=== PATIENT | female | born 2000 | race Caucasian/White ===

== ENCOUNTER 2025-03-06 08:00 | Outpatient (RCR) | payer MEDICAID, SELFPAY ==
--- NOTE | 2025-02-03 08:16 | XR_ITS ---
Examination: Biophysical profile, ultrasound Date and time of exam: February 03, 2025 0823 hrs. Indications: Diagnosis small for gestational age Technique: Multiple transabdominal sonographic images of the pelvis abdomen obtained. Attention is directed to the breathing movement, gross body movement, amniotic fluid volume and tone. Findings: Amniotic fluid index 17.4 cm Total biophysical profile is 8 of 8. breathing movement is 2. Gross body movement is 2. tone is 2. Qualitative amniotic fluid volume is 2 Impression: Biophysical profile is 8 of 8.
[2025-02-03 08:53] VITALS: BP 109/62; PULSE 76; RESP 18; TEMP 36.8
[2025-02-06 08:03] VITALS: BP 121/64; PULSE 85; RESP 16; TEMP 36.7
[2025-02-10 08:21] VITALS: BP 117/63; PULSE 74; RESP 16; TEMP 36.8
[2025-02-13 08:18] VITALS: BP 119/63; PULSE 85; RESP 16; TEMP 36.7
[2025-02-17 08:16] VITALS: BP 120/71; PULSE 85; RESP 16; TEMP 36.8
[2025-02-20 08:16] VITALS: BP 123/75; PULSE 85; RESP 16; TEMP 36.7
[2025-02-24 08:16] VITALS: BP 123/67; PULSE 71; RESP 16
[2025-03-06 08:48] VITALS: BP 122/76; PULSE 76; RESP 16
== END 2025-03-06 23:59 | disposition home or self-care (01) ==
LOC: S4S1 08:00
PROVIDERS: Referring Provider Student in an Organized Health Care Education/Training Program; Visit Provider Student in an Organized Health Care Education/Training Program
DX: Z34.83 Encounter for supervision of other normal pregnancy, third trimester (principal); Z3A.33 33 weeks gestation of pregnancy
CPT/HCPCS: 59025; 76819

== ENCOUNTER 2025-04-16 05:21 | Inpatient (IN) | payer MEDICAID, SELFPAY ==
--- NOTE | 2025-04-15 15:16 | PD.LDHP ---
Documentation for date of: 04/15/25 OB Labor/Induct. HPI History of Present Illness : 2 Term pregnancies: 0 pregnancies: 0 Living children: 0 History of Abortions: Spontaneous and Elective: 0 History of sections: Yes History of : No History of present illness: 24 y/o @39w admitted for Repeat Low transcverse Csection. Tatiana is a transfer of care to [place] late in third trimester . Pt has previous x1. Patient has her uncomplicated otherwise, had an isolated high BP , repeat was normal. GTT wnl. No other cmplications History of Present Dating criteria: LMP confirmed by 1st trimester US Abnormal ultrasound findings: anatomy wnl, ant placenta , no previa low PAS suspicion Narrative: GTT wnl Labs Narrative: Hb 10.2 Past Medical History Surgical History SURGICAL: Positive Section Meds Home Medications and Allergies Home Medications ?Medication ?Instructions ?Recorded ?Confirmed ?Type ferrous sulfate 325 mg (65 mg 325 mg PO .qod 04/16/25 04/16/25 History iron) tablet vits 75-iron 28 mg-folic 1 pkg PO .q day 04/16/25 04/16/25 History acid 800 mcg-omega-3 oral combo pack (One A Day Women's DHA) Allergies Allergy/AdvReac Type Severity Reaction Status Date / Time No Known Allergies Allergy Verified 04/16/25 07:28 OB Exam Constitutional Constitutional: no acute distress Routine HEENT Exam Head: Present normocephalic and atraumatic Eye: Present EOMI and PERRL ENT: Present mucous membranes moist Routine Neck Exam Neck: Present supple and trachea midline Routine Cardiovascular Exam Cardiovascular: Present RRR Routine Abdominal Exam Abdominal: Present soft and normoactive bowel sounds Detailed Labor and Delivery Exam Dilation (cm): closed Comments: cat 1FHT Routine Extremities Exam Extremities: Present full ROM Routine Skin Exam Skin: Present intact, dry and warm Routine Neurological Exam Neurological: Present alert, oriented X3 and CN II-XII intact Routine Psychiatric Exam Psychiatric: Present normal affect and normal thought process OB Results Labs 04/16/25 06:00 Impressions Impression: 24 Y/O @39W0D, admitted for RLTCS Prev Csection x1 anatomy wnl Hb 9.6 > 2 units on hold OB Assessment & Plan Additional Plan Additional Plan Comment: antibiotics per protocol DVT prophylaxis
[2025-04-16] VITALS (29 sets, daily range): BP systolic 103–155; BP diastolic 58–91; PULSE 60–116; RESP 14–20; TEMP 36.3–36.9; O2SAT 98–100; BMI 33.5
[2025-04-16] MEDS: RINGERS LACTATED 1000 ML 1,000 ML 999 ML IV (06:09)
[2025-04-16 06:33] LABS: Basophils # (Auto) 0.1 Thou/mm3 (0.0-0.2); Basophils % (Auto) 1 % (0-2.5); Eosinophils # (Auto) 0.2 Thou/mm3 (0.0-0.5); Eosinophils % (Auto) 2 % (0-10); Hematocrit 28.2 % (36.0-46.0); Hemoglobin 9.6 g/dL (12.0-16.0); Immature Granulocytes % (Auto) 2 % (0-0); Lymphocytes # (Auto) 2.1 Thou/mm3 (1.0-4.8); Lymphocytes % (Auto) 20 % (10-50); Mean Corpuscular Hemoglobin 27.9 pg (25.0-35.0); Mean Corpuscular Volume 82 fL (80-100); Monocytes # (Auto) 0.6 Thou/mm3 (0.0-0.8); Monocytes % (Auto) 6 % (0-12); Neutrophils # (Auto) 7.1 Thou/mm3 (1.8-7.7); Neutrophils % (Auto) 70 % (37-80); Nucleated Red Blood Cell % 0 /100 WBC (0); Platelet Count 241 Thou/mm3 (140-440); Red Blood Count 3.44 Miln/mm3 (4.00-5.20); White Blood Count 10.2 Thou/mm3 (3.6-11.0)
[2025-04-16 07:06] LABS: Syphilis Nonreactive (Nonreactive)
[2025-04-16] MEDS: CITRIC ACID/SODIUM CITR 15 ML UDC (BICITRA) 30 ML PO (07:10)
[2025-04-16] MEDS: FAMOTIDINE INJ 10 MG/ML VIAL 2 ML 20 MG IV (07:10)
[2025-04-16] MEDS: ceFAZolin/D5W 2 GM IV 2 GM/100 ML BAG IV (07:10)
[2025-04-16 07:47] LABS: Amphetamine/Metham Scrn,Ur OB Negative (Negative); Benzoylecgonine Screen, Ur OB Negative (Negative); Opiate Screen,Urine OB Negative (Negative); THC Screen,Urine OB Negative (Negative)
--- NOTE | 2025-04-16 08:38 | PD.GYNPROC ---
Operative Note - OUTDOOR ILLUMINATING ENGINEER Procedure Date of procedure: 04/16/25 Procedure Performed: Repeat low-transverse Indication: Previous C-sectionx1 Maternal anemia Pre-Op diagnosis: Same Post-Op diagnosis: Same Anesthesia type: Spinal Procedure description: Informed consent was obtained and the patient was taken to the operating room.? Identity was confirmed by double identifiers and she was placed on the operating table.The abdomen and perineum were prepped in the usual sterile fashion and a Prado catheter was placed to continuous drainage.? Sterile drapes were applied.??A Pfannenstiel skin incision was made with a scalpel and carried to the subcutaneous fat up to the rectus fascia.? The rectus fascia was incised on either side of the midline and the incisions were extended bilaterally.? The fascia was gently dissected off the ventral surface of the rectus muscle both superiorly and inferiorly. extensive adhesiolysis was done between musle , peritoneum. Carefully a peritioneal window created hysterotomy incision made and extended bluntly with finger. Rupture of membranes revealed clear fluid. The baby was found vertex presentation and was delivered via vertex. Nuchal cord x 2, seen the umbilical cord , was doubly clamped, divided and the was handed over to the waiting team. The placenta delivered by controlled cord traction . The interior of the uterus was now thorougly cleaned of all blood and debris and membranes.?The? hysterotomy was closed using 0 vicryl suture in double layers. Once the repair was completed the hysterotomy was inspected, was noted to be adequately hemostatic. Then the rectus fascia was repaired using Vicryl 0 in a running fashion.? The subcutaneous layer was now, approximated with 3-0 vicryl in double layers.? All bleeding points were cauterized using the Bovie.?The skin was closed using 4-0 Monocryl in a subcuticular fashion.? The skin was cleaned and a sterile dressing was applied. The patient was now undraped, the abdomen and back were thoroughly cleaned and she was now transferred to the recovery room in a stable Estimated blood loss (ml): 200 Surgical staff Operation Date: 04/16/25 07:45 Case Staff ORDNANCE ENGINEER: Roberto Blevins ORDNANCE ENGINEER: Tony Velasco RNlump machine operator: Elma Rodriguez Problem List Completed Was Problem List Reviewed/Reconciled?: Yes
[2025-04-16] MEDS: OXYTOCIN in NS 20 units 20 UNIT/1,000 ML BAG 125 UNIT IV ×2 (08:50→18:20)
--- NOTE | 2025-04-16 08:53 | PD.LDDELS ---
Data ([place]) Data Hx Section: Yes : 2 Term: 0 : 0 Livin Abortions: Spontaneous & Theraputic: 0 Delivery Data ([place]) Delivery Data Delivered by: Craig Cheung Anesthesia Type Anesthesia type: Spinal
[2025-04-16] MEDS: KETOROLAC INJ 30 MG/ML VIAL IVP ×2 (09:21→17:32)
[2025-04-16] MEDS: ACETAMINOPHEN IVPB 1,000 MG/100 ML VIAL 250 MG IV (10:27)
--- NOTE | 2025-04-16 10:43 | OBDSUM_ITS ---
Data ([place]) Data Hx Section: Yes : 2 Term: 0 : 0 Livin Abortions: Spontaneous & Theraputic: 0 Delivery Data ([place]) Labor Data Induction/Augmentation Agent: None ROM date: 04/16/25 ROM time: 08:08 Amniotic membrane rupture type: Artificial Amniotic fluid description: Clear Delivery Data delivery date: 04/16/25 delivery time: 08:08 Gestational age (weeks): 39 Gestational age (days): 0 Placenta delivery date: 04/16/25 Placenta delivery time: 08:09 Delivered by: Craig Cheung Delivery nurse: Monica Albright RN [place] nurse: Clarissa Gómez RN Software Test And Validation Engineer at delivery: No Support person(s) at delivery: CHANTELLE Other staff at delivery: Lex Engle CRNA Delivery Method Delivery method: Low Transverse Presentation: Vertex Anesthesia Type Anesthesia Type: Spinal Anesthesia type: Spinal Placenta Placenta delivery description: Manual Removal Cord blood sent to lab: Yes cord blood collection: Cord Blood Type Episiotomy Episiotomy description: None EBL Estimated blood loss (ml): 200 Umbilical Cord cord description: 3 Vessels [place] Data ([place]rev[place]) [place] Data order: 1 [place]'s gender: Male Identification band number: [id number] weight (gms): 2980 g Weight (pounds): 6 lbs and 9.1 ozs [place] length: 48.2 cm 1 minute: 8 5 minutes: 8 10 minutes: 9
[2025-04-16 15:14] LABS: Basophils # (Auto) 0.1 Thou/mm3 (0.0-0.2); Basophils % (Auto) 0 % (0-2.5); Eosinophils # (Auto) 0.1 Thou/mm3 (0.0-0.5); Eosinophils % (Auto) 1 % (0-10); Immature Granulocytes % (Auto) 1 % (0-0); Immature Granulocytes Auto 0.17 Thou/mm3 (0.00-0.00); Lymphocytes # (Auto) 2.3 Thou/mm3 (1.0-4.8); Lymphocytes % (Auto) 16 % (10-50); Mean Corpuscular Hemoglobin 28.1 pg (25.0-35.0); Mean Corpuscular Volume 83 fL (80-100); Monocytes # (Auto) 0.8 Thou/mm3 (0.0-0.8); Monocytes % (Auto) 5 % (0-12); Neutrophils # (Auto) 11.1 Thou/mm3 (1.8-7.7); Neutrophils % (Auto) 77 % (37-80); Nucleated Red Blood Cell % 0 /100 WBC (0); Platelet Count 189 Thou/mm3 (140-440); RDW Standard Deviation 39.8 fL (36.4-46.3); Red Blood Count 3.02 Miln/mm3 (4.00-5.20); White Blood Count 14.5 Thou/mm3 (3.6-11.0)
[2025-04-16 15:50] LABS: Hemoglobin 8.5 g/dL (12.0-16.0)
--- NOTE | 2025-04-16 19:04 | PC.NURSE ---
[id number] DANIEL TO REPORT POST DELIVERY CBC RESULTS NO ANSWER; VOICE MESSAGE WAS LEFT ASKING HER TO RETURN THE CALL
[2025-04-17] VITALS: BP 131/83; PULSE 90; RESP 18; TEMP 36.8; O2SAT 100
[2025-04-17 04:05] VITALS: BP 116/76; PULSE 83; RESP 16; TEMP 36.7; O2SAT 100
[2025-04-17] MEDS: KETOROLAC INJ 30 MG/ML VIAL IVP (04:10)
--- NOTE | 2025-04-17 07:49 | PD.LDPPPRG ---
Subjective Subjective Interval history: REPEAT SECTION POD #1. BREAST FEEDING. PAIN MANAGED BY TORADOL. NO URINARY COMPLAINTS. AMBULATING WITHOUT ASSISTANCE. Exam Vital Signs Temp Pulse Resp BP Pulse Ox O2 Del Method 98.1 F 83 16 116/76 100 Room Air 04/17/25 04:05 04/17/25 04:05 04/17/25 04:05 04/17/25 04:05 04/17/25 04:05 04/17/25 04:05 Constitutional Constitutional: no acute distress Detailed Eye Exam Eyelids: bilateral: normal inspection Pupils: bilateral: regular, round and bilateral: reactive Routine Respiratory Exam Respiratory: Present no resp distress Routine Abdominal Exam Abdominal: Present normoactive bowel sounds Detailed Lower Extremity Exam Hip: bilateral: normal inspection Ankle: bilateral: normal inspection Objective Labs 04/16/25 14:53 Labs: Laboratory Results - last 24 hr 04/16/25 04/16/25 06:00 14:53 WBC 14.5 H D RBC 3.02 L Hgb 8.5 L Hct 25.0 L MCV 83 MCH 28.1 MCHC 34.0 RDW Std Deviation 39.8 Plt Count 189 D Neut % (Auto) 77 Lymph % (Auto) 16 [place] % (Auto) 5 Eos % (Auto) 1 Baso % (Auto) 0 Neut # (Auto) 11.1 H Lymph # (Auto) 2.3 [place] # (Auto) 0.8 Eos # (Auto) 0.1 Baso # (Auto) 0.1 Immature Gran # (Auto) 0.17 H Absolute Nucleated RBC 0.00 Immature Gran % 1 H Nucleated RBC % 0 Blood Type A Positive Antibody Screen NEGATIVE Crossmatch See Detail Blood Bank Wristband ID Yes Assessment & Plan Assessment Comment Assessment comment: NORMAL PROGRESS POST-OP DAY #1 Plan Comment Plan Comment: ORAL ANALGESICS. ENCOURAGE AMBULATION Time Spent With Patient Time: Total time spent is greater than 50% in coordination of care (as documented) at patient's floor/unit and/or counseling patient: Time with patient: less than 15 minutes
[2025-04-17 07:55] VITALS: BP 113/76; PULSE 96; RESP 17; TEMP 36.8; O2SAT 98
--- NOTE | 2025-04-17 08:45 | PC.LAC ---
mom states that baby is still being very sleepy and that she has only gotten a few good latches. feels like she doing better. had questions as to when she should start pumping, gave her info on starting with week 3 and doing it during babys sleep cycles to allow for her breasts to fill for next feed. Mom understood.
--- NOTE | 2025-04-17 10:43 | PC.SS ---
Orchestrator received a referral for social security benefits interviewer consult regarding patient having history of THC and Post- Depression Screening scored at 11. SW met with patient, introduced self and reason for contact. Patient appeared to be guarded however able to engage during this contact. observed to be present with patient, observed to be bonding appropriately. Patient was able to confirm her demographic information. Patient reports that father of the child, Oral is involved with infant's care. Patient reports being employed and receiving WIC. Patient informs this is her second born child. Patient received care with OB Provider Dr. Brown. Patient denies any history of mental health. Patient denies current substance use. Patient's toxicology report is negative at this time. Patient denies current or history with CWS or DV. Patient reports having all items needed to care for her including: clothing, diapers, car seat. Patient was provided psychoeducation on Post depression and surrounding symptoms. Patient provided with community resource handout with mental health provider listing in the community. Patient was also explained how services could be accessed if necessary. Patient reports she has a good support network including of her mother and father. Patient had no questions or concerns at this time.
[2025-04-17 11:35] VITALS: BP 125/80; PULSE 98; RESP 15; TEMP 36.7; O2SAT 99
[2025-04-17] MEDS: HYDROcodone/APAP 5/325 TABLET 2 TAB PO ×2 (12:13→23:04)
[2025-04-17] MEDS: IBUPROFEN TAB 400 MG TABLET 800 MG PO (16:50)
[2025-04-17 19:46] VITALS: BP 119/76; PULSE 92; RESP 18; TEMP 36.7; O2SAT 100
[2025-04-18 04:00] VITALS: BP 128/84; PULSE 80; RESP 20; TEMP 36.6; O2SAT 100
[2025-04-18] MEDS: IBUPROFEN TAB 400 MG TABLET 800 MG PO (04:01)
[2025-04-18 08:05] VITALS: BP 125/80; PULSE 97; RESP 16; TEMP 36.8; O2SAT 99
[2025-04-18] MEDS: HYDROcodone/APAP 5/325 TABLET 2 TAB PO (08:13)
--- NOTE | 2025-04-18 12:10 | PD.LDDS ---
DS: Providers Provider Date of admission: 04/16/25 05:21 Primary care physician: Physician No Primary/Family Admitting Provider: Brooklynn Brown MD Attending Provider on Admission: Logan Tucker MD Consults: 04/16/25 08:35 Referral Routine Comment: Attending Provider on DC: Logan Tucker MD Discharging Provider: Logan Tucker MD DS: Diagnosis Problem List Completed Was Problem List Reviewed/Reconciled?: Yes Summary/Hosp Course Brief History: 24 y/o @39w admitted for Repeat Low transcverse Csection. Patinet is a transfer of care to or late in third trimester . Pt has previous x1. Patient has her uncomplicated otherwise, had an isolated high BP , repeat was normal. GTT wnl. No other cmplications Peripartum Data Delivery Method: Low Transverse Episiotomy Description: None Procedures: Procedures Operation Date: 04/16/25 07:45 Actual Procedure Side Surgeon p in OB Brooklynn Brown MD Time Spent with Patient Time attestation: Total time spent providing and/or coordinating discharge services: Exam Vital Signs Temp Pulse Resp BP Pulse Ox O2 Del Method 98.2 F 97 16 125/80 99 Room Air 04/18/25 08:05 04/18/25 08:05 04/18/25 08:05 04/18/25 08:05 04/18/25 08:05 04/18/25 08:05 Discharge Plan Plan Patient Disposition: HOME (Self Care) Prescriptions/Referrals Prescriptions/Med Rec: New hydrocodone-acetaminophen 5-325 mg Tablet 2 tab PO Q6HR MDD 8 PRN (Reason: Patient rated pain 9 to 10) 5 Days Qty: 20 0RF ibuprofen 400 mg Tablet 800 mg PO Q8H PRN (Reason: See Comments) 5 Days Qty: 18 0RF No Action One A Day Women's DHA 28 mg iron- 800 mcg combo pack 1 pkg PO .q day ferrous sulfate 325 mg (65 mg iron) tablet 325 mg PO .qod Patient Comments: TAKE 1 TABLET BY MOUTH TWICE A DAY FOR 30 DAYS Referrals: No Primary/Family,Physician [Primary Care Provider] - Patient/Caregiver Discharge Instructions Education Materials: Understanding Blues, Nutrition While , C Section Dc Print Language: Guyanese Stand Alone Forms: Yamilet Award Info., Patient Portal Info Letter, DC from Surgery Discharge Order Discharge Orders: Discharge (Routine); Ordered 04/18/25 Ordered By: Logan Tucker Planned Discharge Date 04/18/25
== END 2025-04-18 12:55 | disposition home or self-care (01) | DRG 540 ==
LOC: S4SX 08:30 → S4NX 09:19
PROVIDERS: Admitting Provider Student in an Organized Health Care Education/Training Program; Visit Provider Obstetrics & Gynecology
PROC: 10D00Z1 Extraction of Products of Conception, Low, Open Approach (ICD-10-PCS; CPT 59514; principal; 2025-04-16 07:30)
DX: O34.211 Maternal care for low transverse scar from previous cesarean delivery (principal); Z37.0 Single live birth; Z3A.39 39 weeks gestation of pregnancy; O69.81X0 Labor and delivery complicated by cord around neck, without compression, not applicable or unspecified; O99.02 Anemia complicating childbirth
CPT/HCPCS: 36415; 59409; 80307; 85025; 86780; 86850; 86900; 86901; 86923; 94762; A4649; J0131; J0689; J1885; J2274; J2371; J2405; J2590; J3490; J7120; A9270; J2270

== ENCOUNTER 2025-06-01 07:37 | Emergency (ER) | payer MEDICAID, SELFPAY ==
[2025-06-01 07:38] VITALS: BMI 30.4
[2025-06-01 07:45] VITALS: BP 108/75; PULSE 117; RESP 19; TEMP 37.5; O2SAT 100
--- NOTE | 2025-06-01 07:55 | XR_ITS ---
Examination: PA lateral chest 2 views Technique: Upright PA lateral chest 2 views Date and time: June 01, 2025, 0922 hrs. Indications: Fever several days. Findings: Normal heart size. The lungs are clear. The osseous structures are intact. Impression: No active disease.
--- NOTE | 2025-06-01 07:56 | PD.EDURI ---
Upper Respiratory Inf. RME/HPI General Chief Complaint: Flu Like Symptoms Stated Complaint: FEVER X8 DAYS Time Seen by Provider: 06/01/25 07:49 Arrival date/time: 06/01/25 07:37 This is a 24-year-old female that comes into the emergency room with complaints of fever for the last 8 days. Patient also complains of bodyaches. Patient was seen by her primary doctor and was tested for the flu but it was negative. Patient states that she was not given antibiotics at this time. Related Data Home Medications ?Medication ?Instructions ?Recorded ?Confirmed ferrous sulfate 325 mg (65 mg 325 mg PO .qod 04/16/25 04/16/25 iron) tablet vits 75-iron 28 mg-folic 1 pkg PO .q day 04/16/25 04/16/25 acid 800 mcg-omega-3 oral combo pack (One A Day Women's DHA) Previous Rx's ?Medication ?Instructions ?Recorded cephalexin 500 mg capsule 500 mg PO TID 7 days #21 caps 06/01/25 Allergies Allergy/AdvReac Type Severity Reaction Status Date / Time No Known Allergies Allergy Verified 06/01/25 07:42 Course Orders Category Date Time Status Bedside COVID-19 Antigen Test NOW Care 06/01/25 07:55 Active Bedside Influenza A&B Antigen Test NOW Care 06/01/25 07:56 Completed XR chest 2V Stat Exams 06/01/25 07:55 Completed HCG Qualitative,Urine Stat Lab 06/01/25 10:52 Completed Urinalysis, C/S if Indicated Stat Lab 06/01/25 10:52 Completed Acetaminophen Tab [Tylenol ES Tab] Med 06/01/25 07:55 Discontinued 1,000 mg PO X1 ONE Ibuprofen Tab [Motrin Tab] Med 06/01/25 07:55 Discontinued 800 mg PO X1 ONE Vital Signs Vital signs: Vital Signs Temperature 99.5 F 06/01/25 07:45 Pulse Rate 117 H 06/01/25 07:45 Respiratory Rate 19 06/01/25 07:45 Blood Pressure 108/75 06/01/25 07:45 Pulse Oximetry (%) 100 06/01/25 07:45 Oxygen Delivery Method Room Air 06/01/25 07:45 Upper Respiratory Infection MDM Narrative MDM Narrative:: Urine positive for UTI. Patient states she is currently breast-feeding. Will give patient a dose of Rocephin here and will start patient on Keflex. I spoke to patient at length about following up with primary provider in 1 to 2 days. I sent a urine culture so she can follow-up with urine culture. Patient told to come back to the emergency room if symptoms change or worsen Medications / Prescriptions Medication administrations:: Medication Administration History Discontinued Medications Acetaminophen (Acetaminophen 500 Mg Tablet) 1,000 mg PO X1 ONE Stop: 06/01/25 07:56 Last Admin: 06/01/25 08:13 Dose: 1,000 mg Documented By: CHELI Ibuprofen (Ibuprofen Tab 400 Mg Tablet) 800 mg PO X1 ONE Stop: 06/01/25 07:56 Last Admin: 06/01/25 08:12 Dose: 800 mg Documented By: CHELI Discharge Plan Plan Patient Disposition: HOME (Self Care) Patient condition on transfer: Stable Prescriptions/Referrals Prescriptions/Med Rec: New cephalexin 500 mg capsule 500 mg PO TID 7 Days Qty: 21 0RF No Action One A Day Women's DHA 28 mg iron- 800 mcg combo pack 1 pkg PO .q day ferrous sulfate 325 mg (65 mg iron) tablet 325 mg PO .qod Patient Comments: TAKE 1 TABLET BY MOUTH TWICE A DAY FOR 30 DAYS Referrals: David Carey MD [Primary Care Provider] - In 1 week Problem List Clinical Impression: UTI (urinary tract infection) Patient/Caregiver Discharge Instructions Discharge Activity: activity as tolerated Education Materials: ED CYSTITIS Female Adult Additional Instructions: Follow up with primary provider in 1-2 days. Come back to ED if symptoms change or worsen Print Language: Togolese Stand Alone Forms: Yamilet Award Info., Patient Portal Info Letter ELIZABETH/PAM Supervising Physician ELIZABETH/PAM Supervising Physician: [email or web address]
[2025-06-01] MEDS: IBUPROFEN TAB 400 MG TABLET 800 MG PO (08:12)
[2025-06-01] MEDS: ACETAMINOPHEN 500 MG TABLET 1000 MG PO (08:13)
[2025-06-01 11:07] LABS: Collection Type, Urine Voided
[2025-06-01 11:22] LABS: Bacteria,Urine 1+; Bilirubin,Urine Negative (Negative); Blood,Urine 1+ (Negative); Color,Urine Yellow (Lt Yel-Yel); Culture Indicated,Urine Contaminated; Glucose, Urine Negative (Negative); Hyaline Casts,Urine < 1 /hpf (0-1); Ketones,Urine Negative (Negative); Leukocyte Esterase,Urine Positive (Negative); Nitrite,Urine Positive (Negative); PH,Urine 6.0 (5.0-7.0); Protein,Urine 2+ (Neg - Trace); RBC,Urine 8 /hpf (0-3); Specific Gravity,Urine 1.033 (1.001-1.035); Squamous Epithelial Cell,Urine 36 /hpf (0-5); Urobilinogen,Urine Negative mg/dL (0.0-1.0); WBC,Urine 93 /hpf (0-5)
[2025-06-01 11:26] LABS: HCG Qualitative,Urine Negative
[2025-06-01 11:27] LABS: Clarity,Urine Hazy (Clear/Hazy)
[2025-06-01] MEDS: cefTRIAXone 1,000 MG, LIDOCAINE 1% 20 ML 2.1 ML IM (12:10)
[2025-06-01 12:27] VITALS: BP 116/68; PULSE 79; RESP 18; TEMP 36.7; O2SAT 100
== END 2025-06-01 12:27 | disposition home or self-care (01) ==
PROVIDERS: Nurse Practitioner Family; Emergency Provider Emergency Medicine; PCP Family Medicine
DX: N39.0 Urinary tract infection, site not specified (principal); R50.9 Fever, unspecified
CPT/HCPCS: 71046; 81001; 81025; 87400; 87811; 96372; 99283; J0696; J3490; A9270